=== PATIENT | female | born 1945 | race Caucasian/White ===

== ENCOUNTER → 2016-11-04 | Outpatient (CLI) | payer MEDICARE, BC ==
[~2016-11-04] MED LIST: CALCIUM 500 + D1 TAB PO; CELEBREX PO; EVISTA60 M1 PO; EVISTA60 MG PO; LIPITOR PO; NEXIUM PO; OSTEO BIFLEX; SYNTHROID PO
[2016-11-04 12:46] LABS: BUN/CREATININE RATIO 18.88; CALCIUM SERUM 9.7 mg/dL (8.4-10.2); CREATININE SERUM 0.9 mg/dL (0.6-1.4); GLOM FILT RATE Estimated 63.9 mL/min (>60); POTASSIUM 5.4 mmol/L (3.5-5.1)
== END | disposition home or self-care (01) ==
LOC: CLAB 12:02
PROVIDERS: Internal Medicine
DX: E87.0 Hyperosmolality and hypernatremia (principal); E87.5 Hyperkalemia; E78.5 Hyperlipidemia, unspecified
CPT/HCPCS: 36415; 80048